=== PATIENT | male | born 1950 | race Caucasian/White ===

== ENCOUNTER → 2020-07-14 08:09 | Outpatient (CLI) | payer MEDICARE, BC, SELFPAY ==
[2020-07-14 08:50] LABS: Add Manual Diff / Slide Review NO; Basophils Absolute Auto 100 /uL (0-100); Basophils Percent Auto 1.9 % (0-2); Eosinophils Absolute Auto 400 /uL (0-450); Eosinophils Percent Auto 6.7 % (2-4); Hematocrit 46.8 % (41-53); Hemoglobin 15.6 g/dL (13.5-17.5); Lymphocytes Absolute Auto 2000 /uL (1100-4500); Lymphocytes Percent Auto 35.5 % (25-40); Mean Corpuscular HGB Conc 33.3 % (30-36); Mean Corpuscular Hemoglobin 30.6 PG (26-34); Monocytes Absolute Auto 600 /uL (0-900); Monocytes Percent Auto 10.7 % (3-14); Neutrophils Absolute Auto 2600 /uL (1500-7000); Neutrophils Percent Auto 45.2 % (50-75); Platelet Count 218 X10^3/uL (150-400); Red Blood Cell Count 5.09 X10^6/uL (4.5-5.9); Red Cell Distribution Width 13.1 % (11.6-14.8); White Blood Cell Count 5.7 X10^3/uL (4.5-11.0)
[2020-07-14 09:11] LABS: Alanine Aminotransferase 30 IU/L (<50); Albumin 4.7 g/dL (3.5-5.0); Albumin Globulin Ratio 1.7 (1.0-2.8); Alkaline Phosphatase 73 U/L (38-126); Aspartate Aminotransferase 31 IU/L (17-59); BUN Creatinine Ratio 23.8 (6-22); Bilirubin Total 0.6 mg/dL (0.2-1.3); Blood Urea Nitrogen 19 mg/dL (9-20); Calcium 10.1 mg/dL (8.4-10.2); Carbon Dioxide 30 mmol/L (22-32); Chloride 102 mmol/L (98-107); Cholesterol 258 mg/dL (140-199); Estimated Glomerular Filt Rate > 60.0 mL/min (>60); Globulin 2.7 g/dL (1.7-4.1); Glucose 113 mg/dL (80-110); HDL Cholesterol 38 mg/dL (40-60); HEMOLYSIS < 15 (0-50); Sodium 139 mmol/L (137-145); Total Protein 7.4 g/dL (6.3-8.2); Triglycerides 416 mg/dL (35-150)
[2020-07-14 09:34] LABS: Prostate Specific Antigen Scrn 0.791 ng/mL (0.1-4.0)
== END ==
PROVIDERS: PCP Internal Medicine; Referring Provider Internal Medicine; Visit Provider Internal Medicine
DX: E78.2 Mixed hyperlipidemia (principal); Z12.5 Encounter for screening for malignant neoplasm of prostate; I10 Essential (primary) hypertension; M65.341 Trigger finger, right ring finger
CPT/HCPCS: 36415; 80053; 80061; 85025; G0103

== ENCOUNTER → 2021-06-27 09:30 | Outpatient (CLI) | payer MEDICARE, BC, SELFPAY | PROVIDERS: PCP Internal Medicine; Referring Provider Internal Medicine; Visit Provider Internal Medicine | DX: E78.2 Mixed hyperlipidemia (principal) | CPT/HCPCS: 36415; 80061; 82172; 83695; 83704 ==

== ENCOUNTER → 2021-08-30 09:20 | Outpatient (CLI) | payer MEDICARE, BC, SELFPAY ==
[2021-08-30 11:10] LABS: COVID19 -Nasal RAPID Negative (Negative)
== END ==
PROVIDERS: PCP Internal Medicine; Visit Provider Surgery
DX: Z01.812 Encounter for preprocedural laboratory examination (principal); Z20.822 Contact with and (suspected) exposure to COVID-19
CPT/HCPCS: 87635; C9803

== ENCOUNTER 2021-08-31 09:31 | Day surgery (SDC) | payer MEDICARE, BC, SELFPAY ==
[2021-08-25 08:19] VITALS: BMI 27.3
[2021-08-31] VITALS (8 sets, daily range): BP systolic 123–164; BP diastolic 72–91; PULSE 72–99; RESP 12–16; TEMP 35.9–36.7; O2SAT 92–98; BMI 27.3
[2021-08-31] MEDS: LACTATED RINGERS 1,000 ML 100 ML IV (10:07)
--- NOTE | 2021-08-31 11:58 | P.HP_ITS ---
History of Present Illness History of Present Illness Date Patient Seen: 08/31/21 Time Patient Seen: 11:59 Chief complaint: SDC Narrative: 70 y.o man here for elective open repair of recurrent left inguinal hernia. No interval changes in health. Patient History Medical History Anesthesia Arthritis Asthma Cataract (~2011) Elevated cholesterol GERD (gastroesophageal reflux disease) Hypertension Surgical History H/O hernia repair (1965) History of hernia repair (1966) History of rotator cuff surgery (1989) Hx of tonsillectomy (1953) [place] teeth removed (1965) Family & Social History Family History Mother Sludge in gallbladder Sister Gallstones Father Diabetes mellitus Stroke Family/Other Diabetes mellitus Social History: household members significant other Tobacco & Substance use: Smoking Status Never smoker alcohol intake current alcohol intake frequency 0-2 drinks per day Substance Use Type does not use Meds Home Medications and Allergies Home Medications Medication Instructions Recorded Confirmed Type albuterol sulfate 90 mcg/actuation 1 puff INHALATION PRN PRN 07/21/21 08/31/21 History aerosol inhaler esomeprazole magnesium 20 mg 20 mg PO DAILY 07/21/21 08/31/21 History capsule,delayed release (Nexium) multivitamin 1 tab PO DAILY 07/21/21 08/31/21 History valsartan 160 mg tablet (Diovan) 160 mg PO DAILY 07/21/21 08/31/21 History ibuprofen 200 mg tablet 400 mg PO Q4-6H PRN 08/25/21 08/31/21 History Allergies Allergy/AdvReac Type Severity Reaction Status Date / Time No Known Drug Allergies Allergy Verified 08/31/21 10:03 Exam Vital Signs (past 8 hours): - 08/31/21 09:56 Temperature 97 F L Pulse Rate 99 H Respiratory Rate 16 Blood Pressure 164/91 H Pulse Oximetry 97 Oxygen Delivery Method Room Air Narrative Exam Narrative: Gen-Adult man alert and oriented Abdomen-Left inguinal hernia marked with my initials. Assessment & Plan Assessment & Plan narrative: 70 y.o man with recurrent left inguinal hernia here for elective open repair. Questions have been answered. Will proceed. Time Spent With Patient Critical Care time: I spent a total of [] minutes of critical care time on this patient's care today; this time is exclusive of procedural time.
[2021-08-31] MEDS: CEFAZOLIN 2 GM/20 ML SYRINGE IV (12:32)
--- NOTE | 2021-08-31 12:40 | SUR.OPER ---
Supine on padded OR bed, head on pillow, arms secured on padded arm boards at <90 degrees abduction, legs uncrossed, safety belt at thigh, tape over blanket over lower legs.
[2021-08-31] MEDS: BUPIVACAINE 0.5% (PF) VIAL 30 ML INJ (12:46)
--- NOTE | 2021-08-31 14:03 | P.OP_ITS ---
Operative Date/Time/Diagnoses Date of procedure: 08/31/21 Time of procedure: 14:03 Pre-op diagnosis: Recurrent left inguinal hernia Post-op diagnosis: same Procedure & Clinicians Procedure: Open repair of recurrent inguinal hernia Same procedure as scheduled: Yes Indications: Symptomatic reducible left inguinal hernia Surgeon: Bernardo Garcia Yes if Unassisted: Yes Anesthesia Type: General Operative Notes Findings: Large indirect hernia containing colon Specimen(s): none sent Estimated Blood Loss (mL): 50 Procedure in detail: The patient was placed supine on the table and bilateral lower extremity compression devices were applied. Anesthesia was induced they were intubated with an LMA and received Ancef. A time-out was performed. They were prepped and draped in sterile fashion. The right external inguinal ring and the anterior superior iliac crest were identified and marked. 1 finger breath above the inguinal ligament the skin was infiltrated with 0.25% bupivacaine. The skin incision was made here and the subcutaneous tissues were divided with electrocautery exposing the external oblique aponeurosis which was then opened along the direction of its fibers. Using blunt dissection the internal oblique aporneurosis was from the external oblique upper leaflet. The cord was carefully dissected away from the inguinal canal adjacent to the pubic tubercle. The cord including the vas deferens, testicular bloody supply, ilioguinal and genital nerve were encircled with a [place] drain. There was no evidence of direct hernia defect. The vas deferens and the testicular vessels were preserved and protected. There was a large indirect hernia on the anterior medial aspect of the cord which was skeletonized away from the vas deferens and testicular blood supply. The indirect hernia contained colon which was viable. The indirect hernia was reduced back into the abdomen. The internal ring was reapproximated and a plug of mesh was used and secured to the adjacent fascia. I selected a 7x 15 cm lightweight Pro Loop hernia mesh. The inferior medial aspect of the mesh was anchored to insertion of the rectus muscle to the pubic tubercle such that there was approximately 2 cm of tubercle overlap with Ethibond and then was run continuously along the inferior edge of the mesh to the shelving edge of the inguinal ligament. Interrupted 3 0 Vicryl suture was used to anchor the superior aspect of the mesh to the conjoined tendon in several places. The tails were then reapproximated loosely around the spermatic cord. The tails of the mesh were then tucked under the external oblique aponeurosis. The repair was checked for hemostasis. The wound was irrigated with sterile saline. The external oblique aponeurosis was reapproximated in a running fashion using 3 0 Vicryl. The subcutaneous tissues were reapproximated with 3 0 Vicryl skin closed with 4 0 Monocryl followed by the application of Dermabond. At the end of the operation I ensured that both testicles were within the scrotum. The sponge instrument count at the end operation was correct. The patient emerged from anesthesia was extubated and transferred to the postoperative care unit in stable condition. A total of 30 ml of of 0.25% bupivicaine was used to infiltrate the skin. Complications: none Post-operative Condition: stable Disposition: same day surgery
--- NOTE | 2021-08-31 16:04 | SUR.PHASEII ---
Late entry: Pt ready to go, dressing remained c/d/i. Steady when up. Left unit in stable condition.
== END 2021-08-31 15:00 | disposition home or self-care (01) ==
PROVIDERS: PCP Internal Medicine; Referring Provider Surgery; Visit Provider Surgery
PROC: (CPT 49520; principal; 2021-08-31 11:15)
DX: K40.91 Unilateral inguinal hernia, without obstruction or gangrene, recurrent (principal); K21.9 Gastro-esophageal reflux disease without esophagitis; I10 Essential (primary) hypertension
CPT/HCPCS: 49520; J0690; J1100; J2405; J2704; J3010

== ENCOUNTER → 2022-10-12 08:37 | Outpatient (CLI) | payer MEDICARE, BC, SELFPAY ==
[2022-10-12 09:45] LABS: Add Manual Diff / Slide Review NO; Basophils Absolute Auto 100 /uL (0-100); Eosinophils Absolute Auto 300 /uL (0-450); Eosinophils Percent Auto 6.8 % (2-4); Hematocrit 45.2 % (41-53); Hemoglobin 15.3 g/dL (13.5-17.5); Lymphocytes Absolute Auto 1900 /uL (1100-4500); Lymphocytes Percent Auto 38.5 % (25-40); Mean Corpuscular HGB Conc 33.8 % (30-36); Mean Corpuscular Hemoglobin 30.7 PG (26-34); Mean Corpuscular Volume 90.8 fL (80-100); Monocytes Absolute Auto 600 /uL (0-900); Monocytes Percent Auto 12.3 % (3-14); Neutrophils Absolute Auto 2000 /uL (1500-7000); Neutrophils Percent Auto 40.4 % (50-75); Platelet Count 175 X10^3/uL (150-400); Red Blood Cell Count 4.98 X10^6/uL (4.5-5.9); Red Cell Distribution Width 13.1 % (11.6-14.8)
[2022-10-12 10:38] LABS: Alanine Aminotransferase 33 IU/L (<50); Albumin 4.2 g/dL (3.5-5.0); Albumin Globulin Ratio 1.6 (1.0-2.8); Alkaline Phosphatase 100 U/L (38-126); Aspartate Aminotransferase 31 IU/L (17-59); BUN Creatinine Ratio 27.8 (6-22); Bilirubin Total 0.4 mg/dL (0.2-1.3); Blood Urea Nitrogen 20 mg/dL (9-20); Calcium 9.2 mg/dL (8.4-10.2); Carbon Dioxide 31 mmol/L (22-32); Chloride 102 mmol/L (98-107); Cholesterol 149 mg/dL (140-199); Estimated Glomerular Filt Rate > 60 mL/min (>60); Globulin 2.6 g/dL (1.7-4.1); Glucose 101 mg/dL (80-110); HDL Cholesterol 42 mg/dL (40-60); HEMOLYSIS < 15 (0-50); LDL Cholesterol Calculated 83 mg/dL (<100); Potassium 4.2 mmol/L (3.4-5.1); Sodium 140 mmol/L (137-145); Total Protein 6.8 g/dL (6.3-8.2); Triglycerides 121 mg/dL (35-150)
[2022-10-12 11:09] LABS: Prostate Specific Antigen Scrn 0.645 ng/mL (0.1-4.0)
[2022-10-13 08:44] LABS: x Labcorp Estim. Avg Glu (eAG) 123 mg/dL (.); x Labcorp Hemoglobin A1c 5.9 % (4.8-5.6)
== END ==
PROVIDERS: PCP Family Medicine; Referring Provider Family Medicine; Visit Provider Family Medicine
DX: E78.5 Hyperlipidemia, unspecified (principal); Z12.5 Encounter for screening for malignant neoplasm of prostate; I10 Essential (primary) hypertension; R73.03 Prediabetes
CPT/HCPCS: 36415; 80053; 80061; 83036; 85025; G0103

== ENCOUNTER → 2023-10-23 07:48 | Outpatient (CLI) | payer MEDICARE, BC, SELFPAY ==
--- NOTE | 2023-10-23 07:51 | DI.RAD.S_ITS ---
PROCEDURE: XR HIP W PEL IF DONE RT 2V INDICATIONS: worsening R hip pain TECHNIQUE: AP pelvis with lateral view(s) of the right hip(s). COMPARISON: None. FINDINGS: Bones: Asymmetric severe right hip joint osteoarthritic changes are seen with near complete loss of superior joint space, extensive subchondral sclerosis and subcortical cystic changes and prominent marginal osteophyte formation. No acute fracture or dislocation. No radiographic evidence of avascular necrosis.. Soft tissues: The visualized bowel gas pattern is normal. No suspicious soft tissue calcifications. IMPRESSION: Asymmetric appearing severe right hip joint osteoarthritis. No acute fracture or dislocation. No radiographic evidence of avascular necrosis. Dictated by: Swapnil Baker M.D. on 10/23/2023 at 8:43 Approved by: Swapnil Baker M.D. on 10/23/2023 at 8:44
[2023-10-23 09:21] LABS: Alanine Aminotransferase 34 IU/L (<50); Albumin 4.4 g/dL (3.5-5.0); Albumin Globulin Ratio 1.7 (1.0-2.8); Alkaline Phosphatase 94 U/L (38-126); Aspartate Aminotransferase 35 IU/L (17-59); BUN Creatinine Ratio 23.9 (6-22); Bilirubin Total 0.6 mg/dL (0.2-1.3); Blood Urea Nitrogen 17 mg/dL (9-20); Calcium 9.5 mg/dL (8.4-10.2); Carbon Dioxide 28 mmol/L (22-32); Chloride 107 mmol/L (98-107); Estimated Glomerular Filt Rate > 60 mL/min (>60); Globulin 2.6 g/dL (1.7-4.1); Glucose 104 mg/dL (80-110); HEMOLYSIS < 15 (0-50); Sodium 141 mmol/L (137-145)
[2023-10-23 09:22] LABS: Hemoglobin A1C% w Est Avg Glu 5.8 % (4.0-6.0)
[2023-10-23 09:27] LABS: Potassium 4.3 mmol/L (3.4-5.1)
== END ==
LOC: LAB 07:50
PROVIDERS: PCP Family Medicine; Referring Provider Family Medicine; Visit Provider Family Medicine
DX: M25.551 Pain in right hip (principal); G89.29 Other chronic pain; E78.5 Hyperlipidemia, unspecified; I10 Essential (primary) hypertension; J45.909 Unspecified asthma, uncomplicated; Z83.3 Family history of diabetes mellitus
CPT/HCPCS: 36415; 73502; 80053; 83036

== ENCOUNTER → 2024-03-11 07:40 | Outpatient (CLI) | payer MEDICARE, BC, SELFPAY ==
--- NOTE | 2024-03-11 | DI.MRI.S_ITS ---
PROCEDURE: MR LUMBAR SPINE WO CON INDICATIONS: Spinal stenosis, lumbar region with neurogenic claudication TECHNIQUE: Noncontrast sagittal T1 spin echo and T2 fast echo, sagittal STIR, and T2 fast spin echo through the lumbar spine. In cases with scoliosis, additional coronal T2 fast spin echo may be performed. COMPARISON: [facility], [place], XR LUMBAR SPINE 2 OR 3 VIEWS, 02/21/2024, 11:28. FINDINGS: Image quality: Excellent. Alignment and Curvature: Moderate levocurvature centered at L3. Trace retrolisthesis of L1 on L2. Trace anterolisthesis of L4 on L5. Bone Marrow: Marrow is of normal overall signal. No acute vertebral body compression fractures. Spinal Cord: Conus medullaris terminates at the L1 level. Visualized cord demonstrates normal signal and size. Paraspinous Soft Tissues: No paravertebral masses. T12-L1: Normal appearance. L1-L2: Chronic disc height loss, retrolisthesis, posterior disc post osteophyte, facet hypertrophy. No canal stenosis or significant foraminal stenosis. L2-L3: Chronic disc height loss. Posterior disc osteophyte complex. Bilateral facet hypertrophy, right greater than left. Epidural lipomatosis. Mild central canal stenosis. Right lateral recess stenosis. [id number] right foraminal narrowing. L3-L4: Severe chronic disc height loss. Posterior disc post osteophyte. Facet and ligament hypertrophy. Epidural lipomatosis. Borderline canal stenosis. [id number] right foraminal stenosis. L4-L5: Trace anterolisthesis. Disc bulge. Prominent facet hypertrophy. Epidural lipomatosis. Borderline canal stenosis. Right lateral disc post osteophyte plus right facet hypertrophy results in moderate to severe right foraminal narrowing and a mild degree of right foraminal L4 nerve root impingement. Reference sagittal image 6 of series 7. [id number] left foraminal stenosis. L5-S1: Diffuse posterior disc bulge. Facet hypertrophy. No significant canal stenosis. Moderate bilateral foraminal stenosis. IMPRESSION: 1. Moderate levo scoliotic curvature centered at L3. 2. Multilevel underlying facet arthropathy. 3. Canal stenosis is mild at L2-L3 and borderline at L3-L4 and L4-L5. Excellent 4. Multilevel foraminal narrowing as described above, moderate to severe on the right at L4-L5. Dictated by: Madan Greco M.D. on 03/11/2024 at 9:44 Approved by: Madan Greco M.D. on 03/11/2024 at 9:51
== END ==
LOC: MRI 07:40
PROVIDERS: PCP Family Medicine; Referring Provider Physical Medicine & Rehabilitation; Visit Provider Physical Medicine & Rehabilitation
DX: M48.062 Spinal stenosis, lumbar region with neurogenic claudication (principal); M48.07 Spinal stenosis, lumbosacral region; M47.816 Spondylosis without myelopathy or radiculopathy, lumbar region; M47.817 Spondylosis without myelopathy or radiculopathy, lumbosacral region; M41.9 Scoliosis, unspecified
CPT/HCPCS: 72148

== ENCOUNTER → 2024-03-24 13:44 | Outpatient (CLI) | payer MEDICARE, BC, SELFPAY ==
[2024-03-24 14:20] LABS: Add Manual Diff / Slide Review NO; Basophils Absolute Auto 100 /uL (0-100); Basophils Percent Auto 2.4 % (0-2); Eosinophils Absolute Auto 300 /uL (0-450); Hematocrit 44.7 % (41-53); Hemoglobin 15.1 g/dL (13.5-17.5); Lymphocytes Absolute Auto 1600 /uL (1100-4500); Lymphocytes Percent Auto 29.7 % (25-40); Mean Corpuscular HGB Conc 33.9 % (30-36); Mean Corpuscular Hemoglobin 30.7 PG (26-34); Mean Corpuscular Volume 90.6 fL (80-100); Monocytes Absolute Auto 600 /uL (0-900); Monocytes Percent Auto 11.2 % (3-14); Neutrophils Absolute Auto 2700 /uL (1500-7000); Neutrophils Percent Auto 51.7 % (50-75); Platelet Count 211 X10^3/uL (150-400); Red Blood Cell Count 4.93 X10^6/uL (4.5-5.9); Red Cell Distribution Width 13.3 % (11.6-14.8); White Blood Cell Count 5.3 X10^3/uL (4.5-11.0)
[2024-03-24 14:26] LABS: Hemoglobin A1C% w Est Avg Glu 5.9 % (4.0-6.0)
[2024-03-24 14:31] LABS: Alanine Aminotransferase 38 IU/L (<50); Albumin 4.6 g/dL (3.5-5.0); Albumin Globulin Ratio 1.6 (1.0-2.8); Alkaline Phosphatase 106 U/L (38-126); Aspartate Aminotransferase 39 IU/L (17-59); BUN Creatinine Ratio 15.7 (6-22); Bilirubin Total 0.6 mg/dL (0.2-1.3); Blood Urea Nitrogen 11 mg/dL (9-20); Calcium 9.5 mg/dL (8.4-10.2); Carbon Dioxide 29 mmol/L (22-32); Chloride 101 mmol/L (98-107); Estimated Glomerular Filt Rate > 60 mL/min (>60); Globulin 2.9 g/dL (1.7-4.1); Glucose 104 mg/dL (80-110); HEMOLYSIS 17 (0-50); Potassium 4.6 mmol/L (3.4-5.1); Sodium 138 mmol/L (137-145); Total Protein 7.5 g/dL (6.3-8.2)
[2024-03-24 14:47] LABS: Vitamin D 25 Hydroxy (D3) 39.4 ng/mL (30.0-100.0)
== END ==
PROVIDERS: Orthopaedic Surgery Adult Reconstructive Orthopaedic Surgery; PCP Family Medicine; Referring Provider Family Medicine; Visit Provider Family Medicine
DX: Z01.812 Encounter for preprocedural laboratory examination (principal); E78.5 Hyperlipidemia, unspecified; Z12.5 Encounter for screening for malignant neoplasm of prostate; Z83.3 Family history of diabetes mellitus; I10 Essential (primary) hypertension; R77.0 Abnormality of albumin; E55.9 Vitamin D deficiency, unspecified; R73.9 Hyperglycemia, unspecified
CPT/HCPCS: 36415; 80053; 82306; 83036; 84134; 85025; G0103

== ENCOUNTER 2024-04-25 06:13 | Day surgery (SDC) | payer MEDICARE, BC, SELFPAY ==
[2024-04-10 12:44] VITALS: BMI 27.3
[2024-04-25] VITALS (13 sets, daily range): BP systolic 103–154; BP diastolic 68–88; PULSE 78–101; RESP 13–20; TEMP 36.2–37; O2SAT 92–98; BMI 27.3; BMI 28.3
--- NOTE | 2024-04-25 | DI.RAD.S_ITS ---
PROCEDURE: XR HIP W PEL IF DONE RT 2V INDICATIONS: POST OP TOTAL RIGHT HIP TECHNIQUE: 2 views of the hip were acquired. COMPARISON: [facility], [place], XR HIP W PEL IF DONE RT 2V, 04/25/2024, 9:24. [facility], [place], XR HIP W PEL IF DONE RT 2V, 10/23/2023, 7:59. FINDINGS: Bones: Right hip arthroplasty in expected position. Moderate left hip arthrosis. Soft tissues: No suspicious calcifications. Postoperative changes are present. IMPRESSION: Postoperative changes following right hip arthroplasty Dictated by: Diego Perez M.D. on 04/26/2024 at 20:16 Approved by: Diego Perez M.D. on 04/26/2024 at 20:17
--- NOTE | 2024-04-25 06:00 | DI.RAD.S_ITS ---
PROCEDURE: XR HIP W PEL IF DONE RT 2V INDICATIONS: intra operative anterior right total hip TECHNIQUE: Multiple intraoperative views during right hip replacement. COMPARISON: [facility], [place], XR HIP W PEL IF DONE RT 2V, 10/23/2023, 7:59. FINDINGS: Bones: Multiple intraoperative views during right hip replacement. Hardware appears appropriately position. IMPRESSION: Intraoperative views during right hip replacement. Hardware appears appropriately position. Dictated by: Jeremiah Murry M.D. on 04/25/2024 at 9:51 Approved by: Jeremiah Murry M.D. on 04/25/2024 at 9:52
[2024-04-25] MEDS: ACETAMINOPHEN 325 MG TABLET 975 MG PO (07:01)
[2024-04-25] MEDS: LACTATED RINGERS 1,000 ML 42 ML IV ×2 (07:02→10:02)
[2024-04-25] MEDS: MELOXICAM 7.5 MG TABLET 15 MG PO (07:02)
--- NOTE | 2024-04-25 07:46 | PM.PREOP ---
Pre-operative Note Interval Note History & Physical reviewed/Exam performed by Physician: Yes Changes to H&P: No
[2024-04-25] MEDS: CEFAZOLIN 2 GM/100 ML PREMIX 100 ML IV ×2 (08:10→16:15)
[2024-04-25] MEDS: TRANEXAMIC ACID 1,000 MG VIAL 2000 MG INJ ×2 (08:15→09:41)
--- NOTE | 2024-04-25 08:28 | SUR.OPER ---
Patient supine on padded [place] table, both arms on padded arm board at <90,, both legs secured in padded traction boots and positioned per surgeon, padded post at patient's groin, pressure points checked and padded.
[2024-04-25] MEDS: ROPIVACAINE/EPI/CLONIDINE/KET 50 ML SYRINGE INJ (08:34)
--- NOTE | 2024-04-25 09:48 | PM.OP.1 ---
Operative Date/Time/Diagnoses Date of procedure: 04/25/24 Pre-op diagnosis: Right hip osteoarthritis Post-op diagnosis: same Procedure & Clinicians Procedure: Right total hip arthroplasty Same procedure as scheduled: Yes Surgeon: Isiah Huber [employer] Materials Tester: Ana Dugan Anesthesia Type: General and Local Operative Notes Estimated Blood Loss (mL): 250 Procedure in detail: Right Uncemented Direct Anterior Depuy Total Hip Arthroplasty: Implants: [place] Gription size 60 cup?with +4 liner Actis femoral stem size 6 high offset? 36 mm +5 ceramic femoral head? Procedure Summary: This 73-year-old male patient had a very varus inclination to his proximal femur. In order to recreate his offset I used a +4 liner, and a high offset stem. I had templated him for a +5 head and he had appropriate stability and leg lengths with that construct so that was used for final implants. No accessory releases of the TFL or conjoined tendon were required to gain access to his femoral canal. Procedure in Detail: This patient was seen preoperatively and evaluated for hip pain which was refractory to numerous nonoperative treatment modalities. Their hip pain correlated with radiographic changes demonstrating significant degeneration in the hip joint. The risks and benefits of continued nonoperative management versus operative management were discussed at length and all of the patient?s questions were answered. Additional educational materials providing further details beyond our discussion in clinic were provided via a publicly available patient education video which included the incidence of medical complications associated with total hip arthroplasty, reasons for revision following total hip arthroplasty, and patient satisfaction rates following total hip arthroplasty. That video can be accessed at [email or web address] . With this understanding of the risks inherent to the procedure, the patient elected to move forward with operative management. Following preoperative optimization, the patient was scheduled for surgery. The patient was met in the preoperative holding area the day of the procedure and all questions were answered. The patient?s nares were swabbed with betadine in order to decolonize them from MRSA. Informed consent was signed and the right limb was marked with indelible ink.? The patient was brought back to the operating room where anesthesia was induced. The patient was transferred to the [place] table and all bony prominences were padded. The operative site was prepped and draped in the usual sterile fashion. Prior to incision, tranexamic acid and cefazolin were administered. Operative templating images were displayed demonstrating the anticipated implant sizes and correct operative extremity. A timeout procedure was performed verifying the patient?s identity, medical comorbidities, allergies, relevant medications, anesthesia type and the surgical plan. All present were in agreement. The assistance of a physician social research assistant was required for positioning, room setup, soft tissue retraction and wound closure. Without this assistance, the procedure would have been significantly more challenging and time consuming.?? A direct anterior approach to the hip was utilized. This was performed with a longitudinal incision through a Heuter interval. The incision was planned 2 cm distal and 2 cm lateral to the ASIS extending towards the lateral patella, in line with the muscle body of the TFL. Following incision, the subcutaneous tissue was dissected while taking care to avoid injury to the lateral femoral cutaneous nerve. The fascia overlying the TFL was identified by dissecting off the overlying fat and identifying perforating vessels to the TFL. The TFL fascia was incised and dissected away from the medial border of the TFL. A cobra retractor was placed over the superior femoral neck between the abductors and the hip capsule and used to reflect the TFL laterally. A [place] self-retainer was then placed in the distal aspect of the wound between the TFL and the rectus femoris. This was tensioned to open up the direct anterior interval and the lateral circumflex vessels were identified and coagulated using electrocautery. The floor of the TFL fascia was incised, exposing the pericapsular fat overlying the hip capsule. A second cobra retractor was placed on the inferior femoral neck. A double-bent soft tissue retractor was placed on the anterior wall of the acetabulum and used to tension the reflected head of rectus femoris, which was then released in order to limit soft tissue tension. A capsulotomy was made in the midline of the anterior hip capsule in line with the femoral neck ending at the vastus tubercle. The double-bent retractor was removed in order to limit the amount of time that a soft tissue retractor remained on the anterior wall and protect the femoral nerve. Tag stitches were placed in the superior and inferior leaflets of the hip capsule. An [place] soft tissue retractor was introduced over the tag stitches and tensioned in the interval between the rectus femoris and the TFL in order to retract and protect those muscles. The cobra retractors were replaced intracapsularly, with one over the superior neck in the pocket created by the base of the greater trochanter and the other on the femoral head. The capsulotomy was extended laterally to the base of the greater trochanter and medially to the lesser trochanter. This required externally rotating the hip. Once the lesser trochanter had been identified, a neck cut was planned according to measurements from preoperative templating. A ruler was cut at the length measured between the superior aspect of the lesser trochanter and the collar of the prosthesis. This line was extended towards the inferior aspect of the lateral cobra retractor to plan a cut which would leave minimal residual femoral neck laterally. The neck was cut at 60 degrees of external rotation along that line. A second cut was performed to remove a large napkin ring and facilitate head extraction. The napkin ring cut and femoral head were removed.?? A broad anterior wall retractor was placed between the labrum and the anterior capsule so that the anterior capsule would prevent capturing and pinching the femoral nerve anteriorly. An additional retractor was placed on the posterior wall. External rotation and traction were applied through the [place] table so that the cut surface of the femoral neck would not restrict access to the acetabulum. The labrum was excised sharply and the pulvinar was excised with electrocautery to limit bleeding from branches of the obturator artery. Acetabular reamers were selected based on preoperative templating and measurements of the excised femoral head. These were introduced into the acetabulum. Fluoroscopy was utilized to replicate a standing AP pelvis radiograph by centering over the pelvis, rotating until there was appropriate symmetry between the obturator foramen, and introducing caudal tilt to match the position of the pubic symphysis relative to the sacrococcygeal junction according to the patient?s anatomy. Fluoroscopy was utilized to ensure appropriate reaming depth. Once satisfied with the reaming depth corresponding to the preoperative template and the pinch fit between the columns, an appropriate sized acetabular cup was selected which would provide 1 mm of press-fit. This cup was introduced and manipulated until appropriate abduction and anteversion angles were obtained with careful attention to appropriate abduction and anteversion angles as evaluated by the position of the cup relative to the anterior and posterior lund of the acetabulum and the AP fluoroscopy which recreated the patient?s standing radiograph. The cup was impacted into place. Peripheral osteophytes were removed. The acetabular liner was then placed with care to ensure locking of the locking mechanism.? Attention was then turned to the femur. All retractors were removed, traction was released, a retractor was placed in the interval between the hip capsule and the gluteus minimus, and the hip was externally rotated to 90 degrees. Traction was applied through the [place] table to tension the lateral capsule and this was released using electrocautery. Traction was released and a [place] hook was placed posteriorly around the proximal femur at the level of the vastus ridge. The table height was lowered in order to restrict the tension on the anterior structures during hip hyperextension to limit the risk of femoral nerve palsy. With traction off and the hip at 90 degrees of external rotation, the hip was hyperextended and adducted while manually elevating the femur away from the acetabulum with the [place] hook to ensure it would not be caught behind the greater trochanter. An asymmetric retractor was placed over the calcar and a broad double-pronged retractor was placed over the greater trochanter. The tag stitch capturing the lateral leaflet of the capsule was moved to the medial side, leaving the conjoined and piriformis tendons isolated in the face of the greater trochanter. The hip was externally rotated and elevated. A release of the conjoined tendon was not necessary in order to obtain adequate exposure for broaching. The canal was opened with an opening broach and a rasp was used to remove cancellous bone. A rongeur was used to remove the residual lateral bone at the base of the greater trochanter to avoid placing the stem in varus. The femur was then broached to the appropriate sized stem yielding good rotational fit and fill of the canal as well as appropriate version of the stem trial. Neck and head trials were placed, all retractors were removed and the hip was returned to neutral abduction and extension. I then reduced the hip. Initial trialing was performed with a size 6 broach, a high offset neck and a +5 head. I initially manually externally rotated the hip and found that I was unable to manually dislocate the hip. I then locked the hip in 45 degrees of external rotation and dropped it to the floor with traction off which demonstrated no instability. An AP pelvis fluoroscopic image matching the preoperative standing radiograph with both lesser trochanters visible and both hips in 40 degrees of external rotation demonstrated appropriate leg length and offset. AP and lateral hip fluoroscopic images were obtained to evaluate the broach size which demonstrated good canal fill. The hip was dislocated and I returned to the broaching position. Based on my evaluation during initial trialing I planned to place these definitive implants. The definitive stem was placed and the trunnion was cleaned and dried. I placed a ceramic head onto the trunnion and impacted it into place on the [place] taper.?? All retractors were removed and the hip was reduced. A dilute mixture of betadine and peroxide was used to bathe the soft tissues during final fluoroscopic assessment. Appropriate component positioning was confirmed on an AP pelvis radiograph with the operative and nonoperative legs in 40 degrees of external rotation, evaluating leg length and offset. Appropriate stem fill was evaluated on AP and lateral hip radiographs. No fractures were identified on these radiographs. There was no hip instability with maximum (130?) external rotation as well as a 45 degree drop test. The hip was copiously irrigated with pulse lavage. The capsule was closed with absorbable interrupted suture. The TFL fascia was closed with barbed suture while carefully protecting the lateral femoral cutaneous nerve from entrapment. A mixture of Ropivacaine, Epinephrine, Clonidine and Toradol was infiltrated throughout the soft tissues. The skin was closed with 2-0 and 3-0 sutures. Surgical glue was applied and a soft dressing was placed.??The sponge, instrument and needle counts were reported as being correct at the end of the case.??No obvious complications occurred. The patient was transferred from the [place] table back to a stretcher. The patient emerged from anesthesia without difficulty and was taken to the PACU in a stable condition.? Plan for aftercare: Anterior hip precautions Weightbearing as tolerated Aspirin 81 twice per day for DVT prophylaxis Anticipate discharge home today Change into normal clothes upon arrival on the hospital floor Mobilize in the halls as much as is logistically possible. If physical therapy is unavailable for mobilization, then patient should mobilize with nursing staff Multimodal pain regimen with no IV opioids ordered Apply ice machine to operative hip. Ensure that sufficient ice is in the chamber for the pad to remain cold Follow up at [facility] in 2 weeks Detailed postoperative instructions available at [email or web address]
[2024-04-25] MEDS: LACTATED RINGERS 1,000 ML 100 ML IV (11:28)
[2024-04-25] MEDS: ACETAMINOPHEN 325 MG TABLET 650 MG PO ×2 (11:32→17:58)
--- NOTE | 2024-04-25 14:17 | PT.IIE ---
Current Diagnoses Unilateral primary osteoarthritis, right hip (04/25/24) Surgery Performed Operation Date: 04/25/24 07:45 Actual Procedures p Total Hip Arthroplasty/Anterior Approach(Right) - Isiah Huber MD Surgical History (Last Reviewed 03/24/24 @ 13:47 by Otoniel Hernandez DO) Anesthesia H/O hernia repair (1965) History of cataract removal with insertion of prosthetic lens History of hernia repair (1966) History of rotator cuff surgery (1989) Hx of tonsillectomy (1953) [place] teeth removed (1965) Medical History (Last Updated 04/10/24 @ 13:25 by Rosalind Becerra RN) Allergies Arthritis Asthma Cataract (~2011) Cervical spine disease Chicken pox Chronic back pain (~1994) Chronic right hip pain Elevated cholesterol Family history of type 2 diabetes mellitus Fractures (~2001) GERD (gastroesophageal reflux disease) (~1989) History of COVID-19 (2021) Hyperglycemia Hyperlipidemia (~2009) Hypertension (~1989) Measles Mumps Osteoarthritis Preoperative cardiovascular examination RBBB (right bundle branch block) Seasonal allergic rhinitis Shoulder pain Tinnitus (~1989) Physical Therapy Inpatient Evaluation/Re-Eval M1 PT/OT-IP Prior Functional Status Start: 04/25/24 15:59 Freq: NEEDED Status: Active Protocol: Document 04/25/24 14:17 AB (Rec: 04/25/24 16:12 AB [id number]) Medical Review Prior Functional Status Medical History Reviewed Yes Communication able to make needs known Mobility and Gait pt stated that he was independent with all mobilities and ambulation without AD Social History Household Members significant other Living Arrangements House Number of Floors (Floors) One Floor Number of Stairs To Enter/Railing? ramp to enter Home Environment High Toilet,Tub/Shower Home Equipment Front Wheel Walker,Hand Held Shower,Grab Bars In Shower M2 PT-IP Current Condition Start: 04/25/24 15:59 Freq: NEEDED Status: Active Protocol: Document 04/25/24 14:17 AB (Rec: 04/25/24 16:12 AB [id number]) Physical Therapy Current Condition Current Condition Evaluation Date 04/25/24 Treatment Diagnosis s/p R NELLIE anterior; difficulty in walking Onset Date 04/25/24 M3 PT-IP Subjective Start: 04/25/24 15:59 Freq: NEEDED Status: Active Protocol: Document 04/25/24 14:17 AB (Rec: 04/25/24 16:12 [id number]) Subjective Physical Therapy Visit Type Type Initial Evaluation Visit Start Time 14:17 Visit Stop Time 15:25 Number of HAND I CUTTER Visits 0 Physical Therapy Visit Comments Patient Comments agreeable to do PT; wants to go home Therapy Pain Assessment Pain When Pain Assessed At Rest Pain Present Pain Present Pain Reported Location Right Hip Intensity 5 Scale Used Numeric (0 - 10) Pain Behaviors Guarding Pain Management Techniques Apply Cold,Distraction, Modification of Treatment,Re- positioning,Timing of Activity with Medications M4 PT-IP Mobility and Gait Start: 04/25/24 15:59 Freq: NEEDED Status: Active Protocol: Document 04/25/24 14:17 AB (Rec: 04/25/24 16:12 [id number]) PT-Bed Mobility Assessment Supine to Sit Supine to Sit Minimal Assistance PT-Transfer Assessment Sit to and From Stand Sit to and from Stand Standby Assistance,Contact Guard Assistance,1 Person Assistance,Use of Upper Extremities Equipment Transfer Assistive Device Gait Belt,Front Wheeled Walker Orthotic/Prosthetic Devices or Brace: No Transfers Transfer Destination Chair Transfer Technique ambulated Transfer Ability Level of Assist Contact Guard Assistance,1 Person Assistance,Use of Upper Extremities Comments Mobility Comments pt supine in bed. spouse in room. obtained PLOF and home set up. post-op folder provided and reviewed contents . educated pt and spouse regarding R anterior hip precautions. BP supine: 95/63. O2 sat: 97% at RA pt completed supine to sit min A for moving LE to EOB. educated spouse on how to assist pt. pt able to sit on EOB SBA. pt completed sit to stand CGA and ambulated towards the chair using fWW CGA ~ 20 ft. pt sat on the chair. BP checked: 138/74. caregiver training educated. educated spouse on how to use safety belt and how to assist pt. spouse was able to put safety belt on pt. assisted pt with sit to stand and ambulation in the hallway using fWW ~ 75 ft. pt sat back on chair. assisted pt with re-adjusting his personal FWW. pt was able to completed sit to stand from chair SBA and marched in place with readjusted FWW. pt sat back on chair. no other concerns and questions. positioned pt on the chair. call light and table placed within reach. left pt with spouse in room. informed nurse regarding pt's mobility level. Gait Assessment Gait Gait Assistance Required: Contact Guard Assist Distance (Feet) 75 Able to Maintain Weight Bearing Status Yes During Gait Assistive Devices Assistive Device Gait Belt,Front Wheeled Walker Orthotic/Prosthetic Devices or Brace: No Gait Deviations General Gait Pattern Antalgic Factors Limiting Gait Function Factors Limiting Gait Function Decreased Activity Tolerance, Decreased Strength,Limited Range of Motion,Pain,Poor Balance,Poor Safety Awareness PT-Balance Assessment Sitting Balance and Reactions Static Sitting Balance Ability Normal Dynamic Sitting Balance Ability Good Standing Balance and Reactions Static Standing Balance Ability Fair Dynamic Standing Balance Ability Fair Device Used FWW M5 PT-IP Objective Assessments Start: 04/25/24 15:59 Freq: NEEDED Status: Active Protocol: Document 04/25/24 14:17 AB (Rec: 04/25/24 16:12 AB [id number]) Orientation Orientation/Cognition Level of Alertness Alert Orientation Name,Age,Birthday,Month,Date, Year,Day of Week,Place, Situation Language Function Ability No Deficits Noted Safety Awareness Understands Safety Issues Memory Description No Deficits Noted Gross Range of Motion Lower Extremity ROM Assessment Within Functional Limits Strength Lower Extremity Strength Assessment Right Impaired Hip 3-/5 Knee 4/5 Coordination Assessment Gross Coordination Gross Coordination WNL Sensation Assessment Sensation Gross Sensation WNL Muscle Tone Muscle Tone WNL Yes M6 PT-IP Treatment Start: 04/25/24 15:59 Freq: NEEDED Status: Active Protocol: Document 04/25/24 14:17 AB (Rec: 04/25/24 16:12 AB [id number]) Physical Therapy Treatment Education Education Provided Precautions,Weight Bearing Status,Post-Op Packet,Safety M7 PT-IP Assessment and Plan Start: 04/25/24 15:59 Freq: NEEDED Status: Active Protocol: Document 04/25/24 14:17 AB (Rec: 04/25/24 16:12 AB [id number]) PT Summary Assessment and Plan Potential Rehabilitation Potential Good Status of Condition at Evaluation Stable Summary Impairments Pain,ROM,Strength,Balance, Coordination,Sensation,Tone, Cognition,Bed Mobility, Transfers,Gait,Activity Tolerance Assessment Summary pt is a 73 y/o M s/p R NELLIE anterior approach POD 0. pt requiring CGA with mobility using FWW. caregiver training conducted and spouse was able to assist pt safely. pt has outpt PT set up. pt may go home when medically stable. Goals Bed Mobility Goal Independent Transfer Goal Independent,Front Wheeled Walker Gait Goal Independent,Front Wheel Walker Gait Distance 250 Days to Meet Goals 3 Frequency of Treatment Frequency Of Treatment Twice a Day Treatment Plan Physical Therapy Treatment Plan Bed Mobility Training,Transfer Training,Gait Training, Therapeutic Exercise,Balance Retraining,Post Op Education, Discharge Planning,Hot or Cold Pack,Neuromuscular Re-ed, Coordination Retraining,Manual Therapy Precautions Anterior Hip Precautions No Hip Extension,No Hip External Rotation Weight Bearing Status Weight Bearing Status Weight Bear as Tolerated Allowed Weight Bearing Amount (enter % RLE WBAT or #) (%) Recommendations To Nursing Amount of Assist Needed 1 Person Assist Discharge Recommendations PT Discharge Recommendations Home with Assistance, Outpatient PT Transportation Needs at Discharge Private Vehicle
[2024-04-25] MEDS: TRAMADOL 50 MG TABLET PO (14:45)
--- NOTE | 2024-04-25 17:39 | P.PN_ITS ---
Subjective Subjective Interval history: I came up to see Bill in his hospital room. He was resting comfortably in his chair in street clothes. He reports that he has minimal pain, has ambulated with physical therapy, has urinated, and had some low blood pressure initially when standing during his ambulation session but that this resolved quickly. He has intact sciatic and femoral nerve function and a clean dressing. He is eager to discharge home and we will put in orders for him to do so. Exam Vital Signs (past 8 hours): - 04/25/24 10:17 04/25/24 10:22 04/25/24 10:27 Temperature 98.1 F Pulse Rate 99 H 91 H 91 H Respiratory Rate 20 16 15 Blood Pressure 105/74 115/77 107/68 Pulse Oximetry 96 95 95 Oxygen Delivery Method Room Air Room Air Room Air Oxygen Flow Rate 04/25/24 10:31 04/25/24 10:46 04/25/24 11:01 Temperature 97.2 F L 97.1 F L 97.3 F L Pulse Rate 89 89 87 Respiratory Rate 15 14 13 Blood Pressure 108/76 106/76 110/81 Pulse Oximetry 95 96 92 Oxygen Delivery Method Room Air Room Air Room Air Oxygen Flow Rate 04/25/24 11:11 04/25/24 11:41 04/25/24 12:11 Temperature 97.6 F Pulse Rate 88 80 82 Respiratory Rate 16 Blood Pressure 135/81 154/86 H 103/70 Pulse Oximetry 93 95 94 Oxygen Delivery Method Oxygen Flow Rate 0 0 0 04/25/24 13:11 04/25/24 16:17 Temperature Pulse Rate 80 78 Respiratory Rate 18 17 Blood Pressure 131/75 119/75 Pulse Oximetry 94 95 Oxygen Delivery Method Oxygen Flow Rate 0 0 Oxygen Delivery Method Room Air Oxygen Flow Rate 0 [facility] Medical History (Updated 04/10/24 @ 13:25 by Rosalind Becerra RN) History of COVID-19 (2021) RBBB (right bundle branch block) Hyperglycemia Preoperative cardiovascular examination Chronic right hip pain Osteoarthritis Allergies Shoulder pain Fractures (~2001) Chronic back pain (~1994) Cervical spine disease Mumps Measles Chicken pox Tinnitus (~1989) Family history of type 2 diabetes mellitus Seasonal allergic rhinitis Hyperlipidemia (~2009) Cataract (~2011) Arthritis Elevated cholesterol GERD (gastroesophageal reflux disease) (~1989) Asthma Hypertension (~1989) Surgical History History of cataract removal with insertion of prosthetic lens Anesthesia History of hernia repair (1966) [place] teeth removed (1965) Hx of tonsillectomy (1953) History of rotator cuff surgery (1989) H/O hernia repair (1965) Family History Mother Sludge in gallbladder Sister Gallstones Status post coronary artery stent placement History of heart disease Hyperlipidemia Father Diabetes mellitus Stroke Family/Other Diabetes mellitus Brother No problems noted. Social History marital status: unmarried,living together household members: significant other occupational status: unemployed Smoking Status: Never smoker alcohol intake: current Assessment & Plan Time-Based Coding :: [TOTAL MINUTES] spent with patient and on the chart (including review of chart, obtaining history, exam, reviewing outside data, placing orders, documenting exam and treatment plan, and counseling patient) on [DATE]. Quality VTE Deep Vein Thrombosis/Pulmonary Embolism Present on Admission: No
== END 2024-04-25 19:29 | disposition home or self-care (01) ==
LOC: OR 06:14 → AC 06:15
PROVIDERS: PCP Family Medicine; Referring Provider Orthopaedic Surgery Adult Reconstructive Orthopaedic Surgery; Visit Provider Orthopaedic Surgery Adult Reconstructive Orthopaedic Surgery
PROC: (CPT 27130; principal; 2024-04-25 07:45)
DX: M16.11 Unilateral primary osteoarthritis, right hip (principal); J45.909 Unspecified asthma, uncomplicated; I10 Essential (primary) hypertension; M25.751 Osteophyte, right hip
CPT/HCPCS: 27130; 73502; 76000; 97161; 97530; C1776; A9270; J0690; J1100; J2405; J2704; J3010

== ENCOUNTER → 2024-10-14 08:58 | Outpatient (CLI) | payer MEDICARE, BC, SELFPAY ==
[2024-04-25 11:19] VITALS: BMI 28.3
[2024-10-14 10:18] LABS: Alanine Aminotransferase 32 IU/L (<50); Albumin 4.4 g/dL (3.5-5.0); Albumin Globulin Ratio 1.9 (1.0-2.8); Alkaline Phosphatase 95 U/L (38-126); Aspartate Aminotransferase 36 IU/L (17-59); BUN Creatinine Ratio 25.7 (6-22); Bilirubin Total 0.6 mg/dL (0.2-1.3); Blood Urea Nitrogen 19 mg/dL (9-20); Calcium 9.6 mg/dL (8.4-10.2); Carbon Dioxide 29 mmol/L (22-32); Chloride 104 mmol/L (98-107); Cholesterol 153 mg/dL (140-199); Estimated Glomerular Filt Rate > 60 mL/min (>60); Globulin 2.3 g/dL (1.7-4.1); Glucose 104 mg/dL (70-99); HDL Cholesterol 43 mg/dL (40-60); HEMOLYSIS < 15 (0-50); LDL Cholesterol Calculated 67 mg/dL (<100); Potassium 4.8 mmol/L (3.4-5.1); Sodium 140 mmol/L (137-145); Total Protein 6.7 g/dL (6.3-8.2); Triglycerides 215 mg/dL (35-150)
[2024-10-14 10:49] LABS: Prostate Specific Antigen Scrn 0.676 ng/mL (0.1-4.0)
== END ==
LOC: LAB 09:00
PROVIDERS: PCP Family Medicine; Referring Provider Family Medicine; Visit Provider Family Medicine
DX: Z12.5 Encounter for screening for malignant neoplasm of prostate (principal); E78.00 Pure hypercholesterolemia, unspecified; R73.9 Hyperglycemia, unspecified; I10 Essential (primary) hypertension; Z83.3 Family history of diabetes mellitus; N40.0 Benign prostatic hyperplasia without lower urinary tract symptoms
CPT/HCPCS: 36415; 80053; 80061; G0103

== ENCOUNTER → 2025-04-06 09:31 | Outpatient (CLI) | payer MEDICARE, BC, SELFPAY ==
[2024-04-25 11:19] VITALS: BMI 28.3
[2025-04-06 10:21] LABS: Add Manual Diff / Slide Review NO; Hematocrit 43.3 % (41-53); Hemoglobin 14.3 g/dL (13.5-17.5); Lymphocytes Absolute Auto 1700 /uL (1100-4500); Mean Corpuscular HGB Conc 33.0 % (30-36); Mean Corpuscular Hemoglobin 28.5 PG (26-34); Mean Corpuscular Volume 86.4 fL (80-100); Platelet Count 174 X10^3/uL (150-400)
[2025-04-06 10:39] LABS: Alanine Aminotransferase 30 IU/L (<50); Albumin 4.4 g/dL (3.5-5.0); Albumin Globulin Ratio 1.6 (1.0-2.8); Alkaline Phosphatase 90 U/L (38-126); Blood Urea Nitrogen 15 mg/dL (9-20); Calcium 9.3 mg/dL (8.4-10.2); Carbon Dioxide 28 mmol/L (22-32); Chloride 104 mmol/L (98-107); Cholesterol 161 mg/dL (140-199); Estimated Glomerular Filt Rate > 60 mL/min (>60); Globulin 2.7 g/dL (1.7-4.1); Glucose 103 mg/dL (70-99); HDL Cholesterol 46 mg/dL (40-60); HEMOLYSIS < 15 (0-50); Potassium 4.4 mmol/L (3.4-5.1); Sodium 139 mmol/L (137-145); Total Protein 7.1 g/dL (6.3-8.2); Triglycerides 193 mg/dL (35-150)
== END ==
PROVIDERS: PCP Family Medicine; Referring Provider Family Medicine; Visit Provider Family Medicine
DX: Z12.5 Encounter for screening for malignant neoplasm of prostate (principal); R73.9 Hyperglycemia, unspecified; E78.00 Pure hypercholesterolemia, unspecified; N40.0 Benign prostatic hyperplasia without lower urinary tract symptoms; I10 Essential (primary) hypertension; Z83.3 Family history of diabetes mellitus
CPT/HCPCS: 36415; 80053; 80061; 85025; G0103